=== PATIENT | female | born 1955 ===

== ENCOUNTER 2017-05-21 12:56 | Emergency (ER) | payer OTHER, MEDICAID ==
[2017-05-21 12:56] VITALS: BMI 27.8
[2017-05-21 13:25] VITALS: BP 149/98; PULSE 80; RESP 18; TEMP 99; O2SAT 99
--- NOTE | 2017-05-21 13:52 | ED PDOC ---
Lower Extremity Pain/Injury Time Seen by Provider: 05/21/17 13:24 Chief Complaint (Nursing): Lower Extremity Problem/Injury Chief Complaint (Provider): Left Leg Pain History Per: Patient History/Exam Limitations: no limitations Onset/Duration Of Symptoms: Days (x2 weeks) Current Symptoms Are (Timing): Still Present Additional Complaint(s): Heide Leggett is a 61 year old female with a history of arthritis that presents to the ED with a chief complaint of throbbing pain and tightness in her left lower leg and calf. Patient states that she is unable to fully straighten her left leg, and that her pain worsens while she is walking. Her PMD Dr. Orlando prescribed her Hydrocone, but she states that it has not been helping to alleviate her pain, and has instead made her feel sluggish. Past Medical History Reviewed: Historical Data, Nursing Documentation, Vital Signs Vital Signs: Last Vital Signs Temp 99 F 05/21/17 13:23 Pulse 80 05/21/17 13:23 Resp 18 05/21/17 13:23 BP 149/98 H 05/21/17 13:23 Pulse Ox 99 05/21/17 13:23 - Medical History PMH: Arthritis, HTN - Family History Family History: States: No Known Family Hx, Unknown Family Hx - Home Medications Home Medications: Ambulatory Orders Medication Instructions Recorded Alendronate [Fosamax] 1 tab PO QWK 09/04/16 Cephalexin [Keflex] 1 mg PO BID 09/04/16 Cholecalciferol (Vitamin D3) 1 cap PO QWK 09/04/16 [Dialyvite Vitamin D] Ibuprofen [Motrin Tab] 600 mg PO Q4 PRN 09/04/16 Valsartan [Diovan] 320 mg PO DAILY 09/04/16 oxyCODONE/Acetaminophen [Percocet 1 mg PO Q4 PRN 09/04/16 5/325 mg Tab] oxyCODONE/Acetaminophen [Percocet 1 tab PO Q4 PRN #0 tab 09/04/16 5/325 mg Tab] Naproxen 500 mg PO Q12 #20 tab 05/21/17 - Allergies Allergies/Adverse Reactions: Allergies Allergy/AdvReac Type Severity Reaction Status Date / Time No Known Allergies Allergy Verified 05/21/17 13:22 Review of Systems Musculoskeletal: Positive for: Leg Pain (left lower leg and calf pain) Physical Exam - Reviewed Nursing Documentation Reviewed: Yes Vital Signs Reviewed: Yes - Physical Exam Appears: Positive for: Non-toxic, No Acute Distress Head Exam: Positive for: ATRAUMATIC, NORMOCEPHALIC Skin: Positive for: Normal Color, Warm Pulses-Dorsalis Pedis (L): 2+ Pulses-Dorsalis Pedis (R): 2+ Extremity: Positive for: Calf Tenderness (left calf), Capillary Refill (<2 seconds). Negative for: Normal ROM (limited ROM left leg due to pain with straightening) Neurologic/Psych: Positive for: Alert, Oriented. Negative for: Motor/Sensory Deficits - ECG O2 Sat by Pulse Oximetry: 99 (RA) Pulse Ox Interpretation: Normal Medical Decision Making Medical Decision Making: Impression: Arthitis Exacerbation/Blood Clot Plan: * X-Ray Left Knee * US Left Knee * Ibuprofen 600 mg PO * Reevaluation * * XR: DJD, NAD, as read by RUSSELL * US: NAd, as read by radiologist * Pt scheduled to see ortho referral on Jun 16 Scribe Attestation: Documented by Charlotte Pham, acting as a scribe for Garima Knutson PA-C. Provider Scribe Attestation: All medical record entries made by the Scribe were at my direction and personally dictated by me. I have reviewed the chart and agree that the record accurately reflects my personal performance of the history, physical exam, medical decision making, and the department course for this patient. I have also personally directed, reviewed, and agree with the discharge instructions and disposition. Disposition - Clinical Impression Clinical Impression: Arthritis - Patient ED Disposition Is Patient to be Admitted: No - Disposition Disposition: Routine/Home Disposition Time: 16:55 Condition: STABLE Prescriptions: Naproxen 500 mg PO Q12 #20 tab Instructions: Osteoarthritis (ED) Forms: [employer] ([place]) - POA Present On Arrival: None
--- NOTE | 2017-05-21 14:37 | RAD ---
PROCEDURE: Left Knee Radiographs. HISTORY: COMPARISON: Bilateral knee radiographs performed 05/15/17 FINDINGS: Rotated lateral view. BONES: No acute displaced fracture. Degenerative changes including osteophyte formation at the lateral proximal tibia and tenting of the intercondylar notch. JOINTS: No dislocation. Mild joint space narrowing most prominent medially. JOINT EFFUSION: No significant joint effusion. OTHER FINDINGS: None. IMPRESSION: Degenerative changes.
--- NOTE | 2017-05-21 15:00 | US ---
Left lower extremity ultrasound. Indication: Pain Technique: Duplex ultrasound evaluation of the left lower extremity Comparison: None available Findings: There is normal flow, compressibility, and augmentation of the left common femoral, femoral, and popliteal veins. The left posterior tibial veins appear patent. Impression: No evidence of deep venous thrombosis in the left lower extremity.
== END 2017-05-21 17:21 | disposition home or self-care (01) ==
LOC: H.ER 12:56
DX: M17.12 Unilateral primary osteoarthritis, left knee (principal); I10 Essential (primary) hypertension

== ENCOUNTER 2018-11-22 01:03 | Emergency (ER) | payer OTHER, MEDICARE ==
[2018-11-22 01:34] VITALS: BMI 24.9
[2018-11-22 01:35] VITALS: BP 158/96; PULSE 92; RESP 16; TEMP 98; O2SAT 100
[2018-11-22] MEDS ORDERED: Sodium Chloride 0.9% 1,000 ML IV STA (01:35)
--- NOTE | 2018-11-22 01:59 | ED PDOC ---
HPI: Neurologic - General Time Seen by Provider: 11/22/18 01:11 Chief Complaint (Nursing): Headache Chief Complaint (Provider): Dizziness Source: patient Exam Limitations: no limitations - History of Present Illness Timing/Duration: other (x2 days) Allergies/Adverse Reactions: Allergies No Known Allergies Allergy (Verified 11/22/18 01:32) Home Medications: Ambulatory Orders Alendronate [Fosamax] 1 tab PO QWK 09/04/16 Cephalexin [Keflex] 1 mg PO BID 09/04/16 Cholecalciferol (Vitamin D3) [Dialyvite Vitamin D] 1 cap PO QWK 09/04/16 Ibuprofen [Motrin Tab] 600 mg PO Q4 PRN 09/04/16 Valsartan [Diovan] 320 mg PO DAILY 09/04/16 oxyCODONE/Acetaminophen [Percocet 5/325 mg Tab] 1 mg PO Q4 PRN 09/04/16 oxyCODONE/Acetaminophen [Percocet 5/325 mg Tab] 1 tab PO Q4 PRN #0 tab 09/04/16 Naproxen 500 mg PO Q12 #20 tab 05/21/17 Meclizine [Antivert] 25 mg PO Q6 PRN #12 tab 11/22/18 Additional Complaint(s): 63 year old female with pmhx of arthritis, osteoporosis, and htn presents to the ED for evaluation of dizziness onset yesterday morning associated with a mild headache. She states at onset, she took her routine medications which relieved her symptoms, but an hour prior to arrival, she got up to use the bathroom and felt severe dizziness described as room spinning associated with trouble walking. Otherwise denies nausea, vomiting, chest pain, shortness of breath, and hx of head injury. PMD: Daniele Orlando Past Medical History Reviewed: Historical Data, Nursing Documentation, Vital Signs Vital Signs: Last Vital Signs Temp 98 F 11/22/18 01:33 Pulse 92 H 11/22/18 01:33 Resp 16 11/22/18 01:33 BP 158/96 H 11/22/18 01:33 Pulse Ox 100 11/22/18 01:33 - Medical History PMH: Arthritis, HTN, Osteoporosis - Surgical History Other surgeries: right knee replacement - Family History Family History: States: Unknown Family Hx - Social History Current smoker - smoking cessation education provided: No Alcohol: None Drugs: Denies - Home Medications Home Medications: Ambulatory Orders Medication Instructions Recorded Alendronate [Fosamax] 1 tab PO QWK 09/04/16 Cephalexin [Keflex] 1 mg PO BID 09/04/16 Cholecalciferol (Vitamin D3) 1 cap PO QWK 09/04/16 [Dialyvite Vitamin D] Ibuprofen [Motrin Tab] 600 mg PO Q4 PRN 09/04/16 Valsartan [Diovan] 320 mg PO DAILY 09/04/16 oxyCODONE/Acetaminophen [Percocet 1 mg PO Q4 PRN 09/04/16 5/325 mg Tab] oxyCODONE/Acetaminophen [Percocet 1 tab PO Q4 PRN #0 tab 09/04/16 5/325 mg Tab] Naproxen 500 mg PO Q12 #20 tab 05/21/17 Meclizine [Antivert] 25 mg PO Q6 PRN #12 tab 11/22/18 - Allergies Allergies/Adverse Reactions: Allergies Allergy/AdvReac Type Severity Reaction Status Date / Time No Known Allergies Allergy Verified 11/22/18 01:32 Review of Systems ROS Statement: Except As Marked, All Systems Reviewed And Found Negative Cardiovascular: Negative for: Chest Pain Respiratory: Negative for: Shortness of Breath Gastrointestinal: Negative for: Nausea, Vomiting Neurological: Positive for: Incoordination (trouble walking), Headache (mild), Dizziness (described as room spinning) Physical Exam - Reviewed Nursing Documentation Reviewed: Yes Vital Signs Reviewed: Yes - Physical Exam Appears: Positive for: No Acute Distress Head Exam: Positive for: ATRAUMATIC, NORMAL INSPECTION, NORMOCEPHALIC Skin: Positive for: Normal Color, Warm, DRY Eye Exam: Positive for: EOMI, Normal appearance, PERRL ENT: Positive for: Normal ENT Inspection Neck: Positive for: Normal, Painless ROM, Supple Cardiovascular/Chest: Positive for: Regular Rate, Rhythm Respiratory: Positive for: Normal Breath Sounds. Negative for: Respiratory Distress Gastrointestinal/Abdominal: Positive for: Normal Exam, Soft. Negative for: Tenderness Back: Positive for: Normal Inspection Extremity: Positive for: Normal ROM (all extremities) Neurologic/Psych: Positive for: Alert, Oriented (x3). Negative for: Motor/Sensory Deficits - Laboratory Results Result Diagrams: 11/22/18 02:11/22/18 02:19 - ECG O2 Sat by Pulse Oximetry: 100 (RA) Pulse Ox Interpretation: Normal Medical Decision Making Medical Decision Making: Time: 133 Initial Impression: 63 year old female with vertiginous dizziness Initial Plan: --CT head without contrast --EKG --CMP --U-dip --CBC with differential --Meclizine 25mg PO --Normal saline IV --Accucheck --Reevaluation 250 CT Findings: The ventricles and sulci are symmetric bilaterally. There is no evidence of acute hemorrhage or infarct. There is no midline shift, mass effect, or extra-axial fluid collection. The osseous structures are unremarkable. The visualized paranasal sinuses and mastoid air cells are clear. Impression: Negative study. 0300 Labs reviewed no clinically significant abnormalities. Pt reports improvement in symptoms and is stable for d/c home with diagnosis of vertigo. Scribe Attestation: Documented by Angie Hernandez, acting as a scribe for Campbell Lima MD. Provider Scribe Attestation: All medical record entries made by the Scribe were at my direction and personally dictated by me. I have reviewed the chart and agree that the record accurately reflects my personal performance of the history, physical exam, m edical decision making, and the department course for this patient. I have also personally directed, reviewed, and agree with the discharge instructions and disposition. Disposition - Clinical Impression Clinical Impression: Vertigo - Patient ED Disposition Is Patient to be Admitted: No Counseled Patient/Family Regarding: Studies Performed, Diagnosis - Disposition Disposition: Routine/Home Disposition Time: 03:03 Condition: STABLE Prescriptions: Meclizine [Antivert] 25 mg PO Q6 PRN #12 tab PRN Reason: Dizziness Forms: [employer] (Portuguese)
[2018-11-22 02:25] LABS: BASO # 0.1 K/uL (0.0-0.2); EOS % 0.5 % (0.0-4.0); HEMOGLOBIN 12.8 g/dL (12.0-16.0); LYMPH # 1.5 K/uL (1.0-4.3); LYMPH % 28.4 % (20.0-40.0); MEAN CELL VOLUME 90.9 fl (81.0-99.0); MEAN CORPUSCULAR HEMOGLOBIN 30.6 pg (27.0-31.0); MEAN CORPUSCULAR HGB CONC 33.7 g/dL (33.0-37.0); MEAN PLATELET VOLUME 8.8 fl (7.2-11.7); MONO # 0.4 K/uL (0.0-0.8); MONO % 7.5 % (0.0-10.0); NEUT # 3.3 K/uL (1.8-7.0); NEUT % 62.6 % (50.0-75.0); RBC 4.18 Mil/uL (3.80-5.20); RED CELL DISTRIBUTION WIDTH 14.6 % (11.5-14.5); WHITE BLOOD COUNT 5.2 K/uL (4.8-10.8)
[2018-11-22 02:35] LABS: ALB/GLOB RATIO 1.1 (1.0-2.1); ALBUMIN 4.2 g/dL (3.5-5.0); BLOOD UREA NITROGEN 14 mg/dl (7-17); CALCIUM 9.1 mg/dL (8.4-10.2); GFR NON-AFRICAN AMERICAN > 60
[2018-11-22 02:38] LABS: ALT/SGPT 26 U/L (9-52); AST/SGOT 24 U/L (14-36)
--- NOTE | 2018-11-22 08:56 | CT ---
Date of service: 11/22/2018 PROCEDURE: CT HEAD WITHOUT CONTRAST. HISTORY: dizziness COMPARISON: Noncontrast head CT performed 10/10/16 TECHNIQUE: Axial computed tomography images were obtained through the head/brain without intravenous contrast. Radiation dose: Total exam DLP = 766.61 mGy-cm. This CT exam was performed using one or more of the following dose reduction techniques: Automated exposure control, adjustment of the mA and/or kV according to patient size, and/or use of iterative reconstruction technique. FINDINGS: HEMORRHAGE: No intracranial hemorrhage. BRAIN: Prominent cerebral atrophy in addition to overall diffuse atrophy with prominence of the ventricles and sulci noted. No mass effect or edema. Intracranial atherosclerosis. The mckinght-white matter differentiation appears intact. Please note that MRI with diffusion imaging is more sensitive in the detection of acute ischemic event. VENTRICLES: No hydrocephalus. CALVARIUM: Unremarkable. PARANASAL SINUSES: Unremarkable as visualized. No significant inflammatory changes. MASTOID AIR CELLS: Unremarkable as visualized. No inflammatory changes. OTHER FINDINGS: None. IMPRESSION: No acute intracranial pathology identified. Findings as above. Preliminary impression was provided by [facility].
--- NOTE | 2018-11-22 11:52 | CARD ---
APPROVED REPORT Date of service: 11/22/2018 EKG Measurement Heart [id number] <Conclusion> Normal sinus rhythm Normal ECG
== END 2018-11-22 03:30 | disposition home or self-care (01) ==
LOC: H.ER 01:03
DX: R42 Dizziness and giddiness (principal); I10 Essential (primary) hypertension; M81.0 Age-related osteoporosis without current pathological fracture; Z96.651 Presence of right artificial knee joint
CPT/HCPCS: 70450; 80053; 82948; 85025; 93005; 96360; 99284; J7030

== ENCOUNTER 2018-12-23 00:30 | Emergency (ER) | payer MEDICARE, OTHER ==
[2018-12-23 00:30] VITALS: BMI 24.9
[2018-12-23] MEDS ORDERED: Sodium Chloride 0.9% 1,000 ML IV STA (01:14)
--- NOTE | 2018-12-23 02:37 | ED PDOC ---
HPI: General Adult Time Seen by Provider: 12/23/18 00:49 Chief Complaint (Nursing): Dizziness/Lightheaded Chief Complaint (Provider): Dizziness/Lightheaded History Per: Patient History/Exam Limitations: no limitations Onset/Duration Of Symptoms: Persistent Current Symptoms Are (Timing): Still Present Additional Complaint(s): 63 year old female with a history of HTN presents to the ED with dizziness. Patient was seen in the ED a few weeks ago and was discharged with Antivert. She is here with the same complaint of room spinning dizziness, but has run out of her medication. No nausea, vomiting, headache, fever, shortness of breath, and chest pain. PMD: none provided Past Medical History Reviewed: Historical Data, Nursing Documentation, Vital Signs Vital Signs: Last Vital Signs Temp 98.2 F 12/23/18 00:35 Pulse 84 12/23/18 00:35 Resp 17 12/23/18 00:35 BP 145/74 12/23/18 02:31 Pulse Ox 99 12/23/18 00:35 - Medical History PMH: Arthritis, HTN, Multiple Sclerosis (2014), Osteoporosis Denies: Chronic Kidney Disease - Surgical History Other surgeries: bunionectomy - Family History Family History: States: Unknown Family Hx - Home Medications Home Medications: Ambulatory Orders Medication Instructions Recorded Alendronate [Fosamax] 1 tab PO QWK 09/04/16 Cephalexin [Keflex] 1 mg PO BID 09/04/16 Cholecalciferol (Vitamin D3) 1 cap PO QWK 09/04/16 [Dialyvite Vitamin D] Ibuprofen [Motrin Tab] 600 mg PO Q4 PRN 09/04/16 Valsartan [Diovan] 320 mg PO DAILY 09/04/16 oxyCODONE/Acetaminophen [Percocet 1 mg PO Q4 PRN 09/04/16 5/325 mg Tab] oxyCODONE/Acetaminophen [Percocet 1 tab PO Q4 PRN #0 tab 09/04/16 5/325 mg Tab] Naproxen 500 mg PO Q12 #20 tab 05/21/17 Meclizine [Antivert] 25 mg PO Q6 PRN #12 tab 11/22/18 Meclizine [Antivert] 25 mg PO Q6 PRN #12 tab 12/23/18 - Allergies Allergies/Adverse Reactions: Allergies Allergy/AdvReac Type Severity Reaction Status Date / Time No Known Allergies Allergy Verified 11/22/18 01:32 Review of Systems ROS Statement: Except As Marked, All Systems Reviewed And Found Negative Neurological: Positive for: Dizziness Physical Exam - Reviewed Nursing Documentation Reviewed: Yes Vital Signs Reviewed: Yes - Physical Exam Appears: Positive for: Non-toxic, No Acute Distress Head Exam: Positive for: ATRAUMATIC, NORMAL INSPECTION, NORMOCEPHALIC Skin: Positive for: Normal Color, Warm, DRY Eye Exam: Positive for: EOMI, Normal appearance, PERRL Neck: Positive for: Normal, Painless ROM, Supple Cardiovascular/Chest: Positive for: Regular Rate, Rhythm. Negative for: Murmur Respiratory: Positive for: Normal Breath Sounds. Negative for: Respiratory Distress Gastrointestinal/Abdominal: Positive for: Normal Exam, Soft Back: Positive for: Normal Inspection. Negative for: L CVA Tenderness, R CVA Tenderness Extremity: Positive for: Normal ROM. Negative for: Deformity Neurologic/Psych: Positive for: Alert, Oriented (x 3). Negative for: Motor/Sensory Deficits - Laboratory Results Result Diagrams: 12/23/18 02:44 12/23/18 02:44 - ECG O2 Sat by Pulse Oximetry: 99 (RA) Pulse Ox Interpretation: Normal Medical Decision Making Medical Decision Makin:14 Impression: 63 year old female with vertiginous dizziness Initial Plan: --CBC --CMP --EKG --UA --Urine dip --Antivert 25 mg PO --NS IV 03:23 Labs reviewed and reveal no clinically significant abnormalities. Chest x-ray shows no active disease. Patient reports improvement of symptoms and is stable for discharge. Diagnosis is vertigo. Scribe Attestation: Documented by Layla Billingsley acting as a scribe for Campbell Lima MD Provider Scribe Attestation: All medical record entries made by the Scribe were at my direction and personally dictated by me. I have reviewed the chart and agree that the record accurately reflects my personal performance of the history, physical exam, medical decision making, and the department course for this patient. I have also personally directed, reviewed, and agree with the discharge instructions and disposition. Disposition - Clinical Impression Clinical Impression: Vertigo - Disposition Disposition: Routine/Home Disposition Time: 03:23 Condition: IMPROVED Prescriptions: Meclizine [Antivert] 25 mg PO Q6 PRN #12 tab PRN Reason: Dizziness Instructions: Vertigo (a Type of Dizziness) Forms: [employer] (T[place]anian)
[2018-12-23 02:51] LABS: BASO # 0.1 K/uL (0.0-0.2); BASO % 1.3 % (0.0-2.0); EOS % 0.9 % (0.0-4.0); HEMOGLOBIN 12.5 g/dL (12.0-16.0); LYMPH # 1.6 K/uL (1.0-4.3); LYMPH % 36.9 % (20.0-40.0); MEAN CELL VOLUME 90.8 fl (81.0-99.0); MEAN CORPUSCULAR HEMOGLOBIN 30.4 pg (27.0-31.0); MEAN CORPUSCULAR HGB CONC 33.4 g/dL (33.0-37.0); MEAN PLATELET VOLUME 9.2 fl (7.2-11.7); MONO # 0.4 K/uL (0.0-0.8); MONO % 9.5 % (0.0-10.0); NEUT # 2.2 K/uL (1.8-7.0); NEUT % 51.4 % (50.0-75.0); NRBC % 0.1 % (0.0-0.0); RBC 4.13 Mil/uL (3.80-5.20); RED CELL DISTRIBUTION WIDTH 14.4 % (11.5-14.5); WHITE BLOOD COUNT 4.4 K/uL (4.8-10.8)
[2018-12-23 02:55] LABS: BLOOD UREA NITROGEN 14 mg/dl (7-17); CALCIUM 9.1 mg/dL (8.4-10.2); GFR NON-AFRICAN AMERICAN > 60
[2018-12-23 03:03] LABS: ALB/GLOB RATIO 0.9 (1.0-2.1); ALBUMIN 3.7 g/dL (3.5-5.0); ALT/SGPT 16 U/L (9-52); AST/SGOT 33 U/L (14-36)
[2018-12-23 03:07] LABS: SQUAMOUS EPITHIAL 1 /hpf (0-5); URINE BILIRUBIN NEGATIVE (NEGATIVE); URINE BLOOD NEGATIVE (NEGATIVE); URINE CLARITY CLEAR (Clear); URINE COLOR STRAW (YELLOW); URINE GLUCOSE (UA) NEG (NEGATIVE); URINE LEUKOCYTE ESTERASE NEG Leu/uL (Negative); URINE PROTEIN NEGATIVE (NEGATIVE); URINE UROBILINOGEN 0.2-1.0 mg/dL (0.2-1.0)
[2018-12-23 09:27] VITALS: BP 142/75
[2018-12-23 10:12] VITALS: PULSE 70; RESP 16; TEMP 98.4; O2SAT 97
--- NOTE | 2018-12-23 13:58 | CARD ---
APPROVED REPORT Date of service: 12/23/2018 EKG Measurement Heart [id number] <Conclusion> Normal sinus rhythm Normal ECG
== END 2018-12-23 06:43 | disposition home or self-care (01) ==
LOC: H.ER 00:30
DX: R42 Dizziness and giddiness (principal); G35 Multiple sclerosis; I10 Essential (primary) hypertension; M81.0 Age-related osteoporosis without current pathological fracture
CPT/HCPCS: 80053; 81003; 85025; 93005; 96360; 99285; J7030